=== PATIENT | male | born 1990 | race Two or more races ===

== ENCOUNTER 2017-06-13 23:57 | Emergency (ER) | payer SELFPAY ==
[2017-06-14 00:04] VITALS: BP 121/74; PULSE 98; RESP 20; TEMP 98.3; O2SAT 97
[2017-06-14] MEDS ORDERED: Belladonna-Phenobarbital PO STA (00:22)
[2017-06-14] MEDS ORDERED: Belladonna-Phenobarbital ONE (00:26)
--- NOTE | 2017-06-14 00:54 | C.PDOC ---
History Of Present Illness Amaury Bull is a 26 year old male, with no past medical history, who presents to the emergency department complaining of body aches and diarrhea onset since 1pm today. He denies any nausea or vomit. No further medical complaints. PMD: None provided. Time Seen by Provider: 06/14/17 00:09 Chief Complaint (Nursing): GI Problem History Per: Patient History/Exam Limitations: no limitations Onset/Duration Of Symptoms: Days (x1) Radiation Of Pain To:: None Associated Symptoms: Diarrhea. denies: Nausea, Vomiting Past Medical History Reviewed: Historical Data, Nursing Documentation, Vital Signs Vital Signs: Last Vital Signs Temp 98.3 F 06/14/17 00:02 Pulse 98 H 06/14/17 00:02 Resp 20 06/14/17 00:02 BP 121/74 06/14/17 00:02 Pulse Ox 97 06/14/17 04:28 Surgical History: No Surg Hx Family History: States: Unknown Family Hx - Social History Hx Tobacco Use: No Hx Alcohol Use: Yes Hx Substance Use: No - Immunization History Hx Tetanus Toxoid Vaccination: No Hx Influenza Vaccination: No Hx Pneumococcal Vaccination: No Review Of Systems Except As Marked, All Systems Reviewed And Found Negative. Constitutional: Positive for: Other (body aches) Gastrointestinal: Positive for: Diarrhea. Negative for: Nausea, Vomiting Physical Exam - Physical Exam Appears: No Acute Distress Skin: Normal Color, Warm, Dry Head: Atraumatic, Normacephalic Eye(s): bilateral: Normal Inspection, EOMI Neck: Normal, Normal ROM, Supple Cardiovascular: Rhythm Regular Respiratory: Normal Breath Sounds, No Accessory Muscle Use Gastrointestinal/Abdominal: Normal Exam, Soft, No Tenderness Extremity: Normal ROM, No Deformity, No Swelling Neurological/Psych: Oriented x3 (awake and alert) Gait: Steady ED Course And Treatment O2 Sat by Pulse Oximetry: 97 (RA) Pulse Ox Interpretation: Normal Medical Decision Making Medical Decision Making: Initial Impression: acute diarrhea, viral syndrome Initial Plan: -- 1 tab PO --Influenza A B --reevaluation Disposition - Disposition Referrals: [facility] [Outside] [facility] [Outside] Disposition: HOME/ ROUTINE Disposition Time: 00:52 Condition: STABLE Additional Instructions: Follow up with PMD within 1-2 days. Return to ED if feel worse. Prescriptions: Loperamide [Loperamide HCl] 2 mg PO QID #20 cap Ibuprofen [Motrin Tab] 400 mg PO Q8 #30 tab Instructions: Acute Diarrhea (ED), Viral Syndrome (ED) Forms: [employer] ([employer]) - Clinical Impression Clinical Impression: Viral disease, Diarrhea - Scribe Statement Woo Mejia All medical record entries made by the Scribe were at my direction and personally dictated by me. I have reviewed the chart and agree that the record accurately reflects my personal performance of the history, physical exam, medical decision making, and the department course for this patient. I have also personally directed, reviewed, and agree with the discharge instructions and disposition.
== END 2017-06-14 01:05 | disposition home or self-care (01) ==
LOC: C.ER 23:57
DX: B34.9 Viral infection, unspecified (principal); R19.7 Diarrhea, unspecified